=== PATIENT | male | born 1990 | race African-American/Black ===

== ENCOUNTER 2019-06-27 13:46 | Emergency (ER) | payer SELFPAY ==
[~2019-06-27] VITALS: Ht 182.9 cm; Wt 106.6 kg
[2019-06-27 14:48] VITALS: BP 157/97
--- NOTE | 2019-06-27 18:38 | PHYS DOC ---
Past Medical History Past Medical History: Other Additional Past Medical Histor: CHRONS Additional Past Surgical Histo: ABD SURGERY Alcohol Use: None Drug Use: Marijuana Adult General Chief Complaint Chief Complaint: KNEE INJURY HPI HPI Patient is a 29 year old AA male who presents to the emergency department with complaints of right knee pain and swelling for the last week. Patient denies any known injury. He denies any redness, erythema, or fever. Patient states he feels like his knee has been swollen. He states that he was working for [employer] and lifting a lot of heavy boxes and he attributes the pain to that work. He describes the pain as constant throbbing. He denies any alleviating or exacerbating factors. Patient states he has tried taking 2 tablets of ibuprofen yesterday with no relief of his symptoms. Review of Systems Review of Systems Constitutional: Denies fever or chills [] Musculoskeletal: See history of present illness, denies decreased range of motion Integument: Denies rash or skin lesions; see history of present illness [] Neurologic: Denies headache, focal weakness or sensory changes [] Complete systems were reviewed and found to be within normal limits, except as documented in this note. Allergies Allergies Allergies Coded Allergies Type Severity Reaction Last Updated Verified No Known Drug Allergies 06/27/19 No Physical Exam Physical Exam Constitutional: Well developed, well nourished, no acute distress, non-toxic appearance. [] HENT: Normocephalic, atraumatic, bilateral external ears normal, nose normal. [] Eyes: PERRLA, EOMI, conjunctiva normal, no discharge. [] Neck: Normal range of motion, no stridor. [] Lungs & Thorax: Respirations even and unlabored, no retractions, no respiratory distress Skin: Warm, dry, no erythema, no rash. [] Extremities: R knee: No erythema, negative anterior and posterior drawer testing, 1+ edema without warmth, no cyanosis, no clubbing, ROM intact Neurologic: Alert and oriented X 3, normal motor function, normal sensory function, no focal deficits noted. [] Psychologic: Affect normal, judgement normal, mood normal. [] Current Patient Data Vital Signs Vital Signs Date Time Temp Pulse Resp B/P (MAP) Pulse Ox O2 Delivery O2 Flow Rate FiO2 06/27/19 14:48 99.0 65 16 157/97 (117) 100 Room Air 99.0 EKG EKG [] Radiology/Procedures Radiology/Procedures [] Course & Med Decision Making Course & Med Decision Making Pertinent Labs and Imaging studies reviewed. (See chart for details) dx: medical screening exam A medical screening exam was performed, patient was found to have no emergent medical condition. The plan of care would've included: X-rays and prescriptions for medication. However, the patient eloped after talking with registration. [] [] Dragon Disclaimer Dragon Disclaimer This electronic medical record was generated, in whole or in part, using a voice recognition dictation system. Departure Departure Impression: Primary Impression: Encounter for medical screening examination Disposition: HOME, SELF-CARE (pt eloped after speaking with registration) Condition: STABLE Referrals: NO PCP (PCP) KARLA TELLO FOLDER MACHINE Jun 27, 2019 18:38
== END 2019-06-27 15:21 | disposition home or self-care (01) ==
LOC: ER 13:46
DX: M25.561 Pain in right knee (principal)
CPT/HCPCS: 99281